=== PATIENT | female | born 1970 | race Caucasian/White ===

== ENCOUNTER 2020-12-18 09:54 | Outpatient (CLI) | payer OTHER ==
--- NOTE | 2020-12-19 11:00 | Mammography Report ---
DIGITAL SCREENING MAMMOGRAM WITH CAD, 12/18/2020 CLINICAL INFORMATION / INDICATION: Routine screening mammography. Sukumar there is a polypoid abnormal ity TECHNIQUE: Digital bilateral 2D mammography was obtained in the craniocaudal and mediolateral obliqu e projections. This examination was interpreted with the benefit of Computer-Aided Detection analysis . COMPARISON: 07/07/2016 FINDINGS: Breast Density: The breasts are heterogeneously dense, which may obscure small masses. No dominant mass, suspicious calcifications, or architectural distortion in the right breast. There is a new focal asymmetric density in the upper outer quadrant of the left breast which measures approximately 13 mm. IMPRESSION: There is a new focal asymmetric density in the upper outer quadrant of the left breast wh ich requires further evaluation. Follow up recommendation: Ultrasound BI-RADS Category 0: Incomplete. Needs additional imaging evaluation and/or prior mammograms for john campbell. A "normal" or negative report should not discourage follow up or biopsy of a clinically significant f inding. A written summary of these findings will be mailed to the patient. The patient will be entered into a mammography reporting system which will generate a reminder letter for the patient's next appointmen t at the appropriate interval. The [employer] recommends yearly mammograms starting at age 40 and continuing as l violet as a woman is in good health. Breast MRI is recommended for women with an approximate 20-25% or greater lifetime risk of breast cancer, including women with a strong family history of breast or ova too cancer or who have been treated for Hodgkin's disease. Signer Name: Héctor Juan MD Signed: 12/19/2020 10:55 AM Workstation Name: [id number]
== END 2020-12-18 09:55 | disposition home or self-care (01) ==
LOC: MAMMO 09:54
PROVIDERS: ATTEND Family Medicine
DX: Z12.31 Encounter for screening mammogram for malignant neoplasm of breast (principal)
CPT/HCPCS: 77067

== ENCOUNTER 2021-01-22 09:18 | Outpatient (CLI) | payer OTHER ==
--- NOTE | 2021-01-22 10:33 | Mammography Report ---
LEFT DIGITAL DIAGNOSTIC MAMMOGRAM WITH CAD , 01/22/2021 LEFT LIMITED BREAST ULTRASOUND CLINICAL INFORMATION / INDICATION: Abnormal screening mammogram. Screening recall of the left breast for nodular density. TECHNIQUE: Digital left mammographic imaging was performed. Spot compression views were obtained. Jones ited ultrasound was performed. This examination was interpreted with the benefit of Computer-Aided De tection (CAD) analysis. COMPARISON: Screening mammogram, 12/18/2020, 07/07/2016 FINDINGS: Breast Density: The breasts are heterogeneously dense, which may obscure small masses. MAMMOGRAPHIC FINDINGS: Spot compression views of the upper outer right breast demonstrate that the de nsity in question essentially resolves. The appearance of the breast parenchyma has not significantly changed when compared to prior mammograms. This may have been related to dense overlapping fibroglan dular tissue. ULTRASOUND FINDINGS: Targeted ultrasound evaluation was performed of the area of interest. Sonograp hic evaluation of the upper outer left breast demonstrates no evidence of suspicious solid mass or sh adowing. Dense fibroglandular tissue is noted as demonstrated mammographically. There is normal-appea ring lymph node in the axillary tail at the 1:00 position. IMPRESSION: The density in question in the upper outer quadrant is likely related to dense overlappin g fibroglandular tissue. A six-month follow-up left mammogram and ultrasound is recommended to confir m this impression. Follow up recommendation: Short term follow up in 6 months. BI-RADS Category 3: Probably Benign. Followup in 6 months. A "normal" or negative report should not discourage follow up or biopsy of a clinically significant f inding. A written summary of these findings will be mailed to the patient. The patient will be entered into a mammography reporting system which will generate a reminder letter for the patient's next appointmen t at the appropriate interval. According to the [employer], yearly mammograms are recommended starting at age 40 and continuing as long as a woman is in good health. Breast MRI is recommended for women with an abel roximately 20-25% or greater lifetime risk of breast cancer, including women with a strong family his tory of breast or ovarian cancer and women who have been treated for Hodgkin's disease. Signer Name: Drea Tinajero MD Signed: 01/22/2021 10:28 AM Workstation Name: [id number]
--- NOTE | 2021-01-22 10:45 | Ultrasound Report ---
Please see mammography report performed the same day. Signer Name: Drea Tinajero MD Signed: 01/22/2021 10:40 AM Workstation Name: [employer]
== END 2021-01-22 09:19 | disposition home or self-care (01) ==
LOC: MAMMO 09:18
PROVIDERS: ATTEND Family Medicine
DX: R92.8 Other abnormal and inconclusive findings on diagnostic imaging of breast (principal)

== ENCOUNTER 2021-08-05 15:01 | Outpatient (CLI) | payer OTHER ==
--- NOTE | 2021-08-07 08:15 | Mammography Report ---
DIGITAL DIAGNOSTIC MAMMOGRAM WITH CAD CONVENTIONAL, 08/05/2021 CLINICAL INFORMATION / INDICATION: Patient presents for six-month follow-up of a probably benign dens ity in the left breast. TECHNIQUE: Digital left mammographic imaging was performed. This examination was interpreted with the benefit of Computer-aided Detection analysis. COMPARISON: Prior mammogram 12/18/2020 and left breast ultrasound 01/22/2021 FINDINGS: Breast Density: The breasts are heterogeneously dense, which may obscure small masses. No dominant mass, suspicious calcifications or architectural distortion in the left breast. The previously described density in the upper outer quadrant of the left breast is again less conspic uous compared with the prior mammogram and most compatible with overlapping dense fibroglandular tiss ue. IMPRESSION: 1. The previously described density is most compatible with overlapping dense fibroglandular tissue. No suspicious mammographic abnormality identified. Follow up recommendation: Back to schedule. BI-RADS Category 1: Negative. A "normal" or negative report should not discourage follow up or biopsy of a clinically significant f inding. A written summary of these findings will be mailed to the patient. The patient will be entered into a mammography reporting system which will generate a reminder letter for the patient's next appointmen t at the appropriate interval. According to the [employer], yearly mammograms are recommended starting at age 40 and continuing as long as a woman is in good health. Breast MRI is recommended for women with an abel roximately 20-25% or greater lifetime risk of breast cancer, including women with a strong family his tory of breast or ovarian cancer and women who have been treated for Hodgkin's disease. Signer Name: Екатреина Ortega MD Signed: 08/07/2021 8:10 AM Workstation Name: [email or web address]
== END 2021-08-05 15:02 | disposition home or self-care (01) ==
LOC: MAMMO 15:01
PROVIDERS: ATTEND Family Medicine
DX: R92.8 Other abnormal and inconclusive findings on diagnostic imaging of breast (principal)